=== PATIENT | female | born 1965 | race Hispanic/Latino ===

== ENCOUNTER 2021-01-13 22:39 | Emergency (ER) | payer OTHER, SELFPAY ==
[2021-01-13] MEDS ORDERED: IBUPROFEN 600 MG TABLET ONE (23:11)
== END 2021-01-13 23:54 | disposition home or self-care (01) ==
LOC: EDH 22:39
DX: S93.602A Unspecified sprain of left foot, initial encounter (principal); V49.59XA Passenger injured in collision with other motor vehicles in traffic accident, initial encounter; Y93.89 Activity, other specified; Y92.488 Other paved roadways as the place of occurrence of the external cause; Y99.8 Other external cause status
CPT/HCPCS: 73610; 73630